=== PATIENT | male | born 1980 | race Hispanic/Latino ===

== ENCOUNTER 2020-04-11 15:00 | Emergency (ER) | payer OTHER ==
--- NOTE | 2020-04-11 17:21 | ER ---
Nurse's Notes [facility] Name: Roger Sampson Age: 39 yrs Sex: Male : 1980 Arrival Date: 04/11/2020 Time: 15:03 Bed 26 Private MD: Diagnosis: Hypertension Presentation: 04/11 15:36 Acuity: FISH 3 sg 15:48 Chief complaint: Patient states: At home for the last couple of days my blood pressure sg has been really high like 160's/100's, I havent had any other symptoms though, no pain either. (form tamper used via [email or web address]). Coronavirus screen: Client denies travel out of the [place] in the last 14 days. At this time, the client does not indicate any symptoms associated with coronavirus-19. Ebola Screen: Patient negative for fever greater than or equal to 101.5 degrees Fahrenheit, and additional compatible Ebola Virus Disease symptoms Patient denies exposure to infectious person. Patient denies travel to an Ebola-affected area in the 21 days before illness onset. No symptoms or risks identified at this time. Initial Sepsis Screen: Does the patient meet any 2 criteria? No. Patient's initial sepsis screen is negative. Does the patient have a suspected source of infection? No. Patient's initial sepsis screen is negative. Risk Assessment: Do you want to hurt yourself or someone else? Patient reports no desire to harm self or others. Onset of symptoms was April 11, 2020. Care prior to arrival: None. Transition of care: patient was not received from another setting of care. 15:48 Method Of Arrival: Ambulatory sg Historical: - Allergies: 15:51 No Known Allergies; sg - Home Meds: 15:51 None [Active]; sg - PMHx: 15:51 None; sg - PSHx: 15:51 R Clavicle; Abdominal Sx (Exploratory); sg - Immunization history:: Adult Immunizations up to date. - Social history:: Smoking status: Patient denies any tobacco usage or history of. - Family history:: not pertinent. - Hospitalizations: : No recent hospitalization is reported. Screenin:30 Abuse screen: Denies threats or abuse. Denies injuries from another. Nutritional iw screening: No deficits noted. Tuberculosis screening: No symptoms or risk factors identified. Fall Risk None identified. Assessment: 17:00 General: Appears in no apparent distress. comfortable, Behavior is calm, cooperative. iw Pain: Denies pain. Neuro: Level of Consciousness is awake, alert, obeys commands, Oriented to person, place, time, situation, Moves all extremities. Cardiovascular: Patient's skin is warm and dry. Respiratory: Respiratory effort is even, unlabored, Respiratory pattern is regular. GI: No signs and/or symptoms were reported involving the gastrointestinal system. Derm: Skin is intact, is healthy with good turgor. Musculoskeletal: Range of motion: intact in all extremities. Vital Signs: 15:48 BP 132 / 94; Pulse 81; Resp 18; Temp 98.9; Pulse Ox 100% on R/A; Weight 76.2 kg; Height sg 5 ft. 6 in. (167.64 cm); Pain 0/10; 15:48 Body Mass Index 27.12 (76.20 kg, 167.64 cm) sg ED Course: 15:03 Patient arrived in ED. ag5 15:36 Triage completed. sg 15:44 Arm band placed on. sg 16:53 Jacob Ruiz MD is Attending Physician. rn 17:00 Mirella Lilly RN is Primary Nurse. ca1 17:30 Patient has correct armband on for positive identification. iw 17:30 No provider procedures requiring assistance completed. Patient did not have IV access iw during this emergency room visit. Administered Medications: No medications were administered Outcome: 17:20 Discharge ordered by . rn 17:30 Discharged to home ambulatory. iw 17:30 Condition: good 17:30 Discharge instructions given to patient, Instructed on discharge instructions, follow up and referral plans. Demonstrated understanding of instructions, follow-up care, medications, Prescriptions given X 1. 17:30 Patient left the ED. iw Signatures: Tez Barba RN RN sg Mandy Sheehan RN RN iw Jacob Ruiz MD MD rn Acob, Cheryl, RN RN [facility] Tray Kamran ag5
--- NOTE | 2020-04-11 17:21 | EDPHYS ---
Physician Documentation [facility] Name: Roger Sampson Age: 39 yrs Sex: Male : 1980 Arrival Date: 04/11/2020 Time: 15:03 Bed 26 Private MD: ED Physician Jacob Ruiz HPI: 04/11 17:03 This 39 yrs old Male presents to ER via Ambulatory with complaints of High rn Blood Pressure. 17:03 The patient has elevated blood pressure and discovered this at home. Onset: The rn symptoms/episode began/occurred at an unknown time. 17:03 Modifying factors:. Associated signs and symptoms: The patient has no apparent rn associated signs or symptoms, Pertinent negatives: chest pain, headache, nausea, vomiting, weakness. Severity of symptoms: At its worst the blood pressure was moderate, in the emergency department the blood pressure is improved. The patient has not experienced similar symptoms in the past. Reports has been feeling "strange" lately, bought BP machine yesterday and reading BPs of 160s/100s, denies chest pain/sob/abd pain/focal neuro complaint. Reports father with BP problems. Feels better today. Reports works 2 jobs with very minimal rest and sleep. Is here from [place], and does not have a doctor. . Historical: - Allergies: 15:51 No Known Allergies; sg - Home Meds: 15:51 None [Active]; sg - PMHx: 15:51 None; sg - PSHx: 15:51 R Clavicle; Abdominal Sx (Exploratory); sg - Immunization history:: Adult Immunizations up to date. - Social history:: Smoking status: Patient denies any tobacco usage or history of. - Family history:: not pertinent. - Hospitalizations: : No recent hospitalization is reported. ROS: 17:03 Constitutional: Negative for fever, chills, and weight loss, Eyes: Negative for injury, rn pain, redness, and discharge, Neck: Negative for injury, pain, and swelling, Cardiovascular: Negative for chest pain, palpitations, and edema, Respiratory: Negative for shortness of breath, cough, wheezing, and pleuritic chest pain, Abdomen/GI: Negative for abdominal pain, nausea, vomiting, diarrhea, and constipation, Back: Negative for injury and pain, MS/Extremity: Negative for injury and deformity, Skin: Negative for injury, rash, and discoloration, Neuro: Negative for headache, weakness, numbness, tingling, and seizure. Exam: 17:03 Constitutional: This is a well developed, well nourished patient who is awake, alert, rn and in no acute distress. Head/Face: Normocephalic, atraumatic. Neck: Supple, full range of motion without nuchal rigidity. No Meningismus. Cardiovascular: Regular rate and rhythm. No pulse deficits. Respiratory: No increased work of breathing, no retractions or nasal flaring. Abdomen/GI: Soft, non-tender Skin: Warm, dry MS/ Extremity: Pulses equal, no cyanosis. Neuro: Awake and alert, GCS 15, oriented to person, place, time, and situation. Cranial nerves II-XII grossly intact. Motor strength 5/5 in all extremities. Sensory grossly intact. Cerebellar exam normal. Normal gait. Vital Signs: 15:48 BP 132 / 94; Pulse 81; Resp 18; Temp 98.9; Pulse Ox 100% on R/A; Weight 76.2 kg; Height sg 5 ft. 6 in. (167.64 cm); Pain 0/10; 15:48 Body Mass Index 27.12 (76.20 kg, 167.64 cm) sg MDM: 16:53 Patient medically screened. rn 17:17 Differential diagnosis: Malignant HTN, asymptomatic HTN, stress. Data reviewed: vital rn signs, nurses notes, and as a result, I will discharge patient. Counseling: I had a detailed discussion with the patient and/or guardian regarding: the historical points, exam findings, and any diagnostic results supporting the discharge/admit diagnosis, the need for outpatient follow up, to return to the emergency department if symptoms worsen or persist or if there are any questions or concerns that arise at home. Special discussion: I discussed with the patient/guardian in detail that at this point there is no indication for admission to the hospital. It is understood, however, that if the symptoms persist or worsen the patient needs to return immediately for re-evaluation. Based on the history and exam findings, there is no indication for further emergent testing or inpatient evaluation. I discussed with the patient/guardian the need to see the primary care provider for further evaluation of the symptoms. ED course: Recommend consistent BP management and diary, will start on low dose anti-hypertensive and urge pcp f/u.. Administered Medications: No medications were administered Disposition: 04/11/20 17:20 Discharged to Home. Impression: Hypertension. - Condition is Stable. - Discharge Instructions: Hypertension, Managing Your Hypertension. - Prescriptions for Hydrochlorothiazide 25 mg Oral Tablet - take 1 tablet by ORAL route once daily .; 60 tablet. - Medication Reconciliation Form, Thank You Letter, Antibiotic Education, Prescription Opioid Use form. - Follow up: Private Physician; When: As needed; Reason: Recheck today's complaints, Re-evaluation by your physician. - Problem is new. - Symptoms have improved. Signatures: Tez Barba RN RN sg Mandy Sheehan RN RN iw Jacob Ruiz MD MD data analysis intern: (The following items were deleted from the chart) 17:30 17:20 04/11/2020 17:20 Discharged to Home. Impression: Hypertension. Condition is iw Stable. Forms are Medication Reconciliation Form, Thank You Letter, Antibiotic Education, Prescription Opioid Use. Follow up: Private Physician; When: As needed; Reason: Recheck today's complaints, Re-evaluation by your physician. Problem is new. Symptoms have improved. rn
[2020-04-11 17:35] VITALS: BP 132/94; TEMP 98.9; O2SAT 100
== END 2020-04-11 17:30 | disposition home or self-care (01) ==
LOC: ER 15:00
DX: I10 Essential (primary) hypertension (principal)
CPT/HCPCS: 99282

== ENCOUNTER 2020-06-30 17:06 | Emergency (ER) | payer OTHER ==
[2020-06-30] MEDS ORDERED: BUPIVACAINE 0.5% PF 10 ML VIAL ONE (18:35)
[2020-06-30] MEDS ORDERED: LIDOCAINE 1% MPF 5 ML VIAL ONE (18:35)
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
[2020-06-30] MEDS ORDERED: CEPHALEXIN 250 MG CAP ONE (19:47)
[2020-06-30] MEDS ORDERED: SMZ./TMP. 800/160 MG TABLET ONE (19:47)
[2020-06-30 19:58] VITALS: TEMP 98.4
[2020-06-30 19:59] VITALS: BP 121/76; O2SAT 99
== END 2020-07-01 02:09 | disposition home or self-care (01) ==
LOC: ER 17:06
PROC: 0H9GXZZ Drainage of Left Hand Skin, External Approach (ICD-10-PCS; principal; 2020-06-30)
DX: L03.012 Cellulitis of left finger (principal); F17.210 Nicotine dependence, cigarettes, uncomplicated
CPT/HCPCS: 99283

== ENCOUNTER 2020-07-28 13:27 | Emergency (ER) | payer OTHER ==
[2020-07-28 15:46] LABS: Urine Blood Trace-intact (Negative); Urine Glucose Negative (Negative); Urine Protein 1+ (Negative); Urine Specific Gravity 1.025 (1.005-1.030)
[2020-07-28] MEDS ORDERED: HYDROCODONE/APAP 7.5/325 MG TAB ONE (16:41)
--- NOTE | 2020-07-28 17:04 | RAD REPORT ---
EXAM DESCRIPTION: RAD - Pelvis - 07/28/2020 4:54 pm CLINICAL HISTORY: PAIN COMPARISON: No comparisons FINDINGS: No fracture, dislocation or radiographic evidence of AVN. IMPRESSION: Negative study.
--- NOTE | 2020-07-28 17:04 | RAD REPORT ---
EXAM DESCRIPTION: RAD - Lumbar Spine 3 Views - 07/28/2020 4:57 pm CLINICAL HISTORY: PAIN Radiculopathy COMPARISON: No comparisons FINDINGS: Vertebral body heights appear maintained. No compression fracture noted. Mild disc thinnin g is present lower lumbar levels. No spondylolysis or spondylolisthesis. IMPRESSION: No acute lumbar abnormality seen. Mild lower lumbar spondylosis.
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
[2020-07-28 19:04] VITALS: TEMP 97.2
[2020-07-28 19:05] VITALS: BP 111/69; O2SAT 100
== END 2020-07-28 18:09 | disposition home or self-care (01) ==
LOC: ER 13:27
DX: M43.06 Spondylolysis, lumbar region (principal); M79.605 Pain in left leg; F17.210 Nicotine dependence, cigarettes, uncomplicated
CPT/HCPCS: 72100; 72170; 81003; 99284

== ENCOUNTER 2020-08-15 10:24 | Emergency (ER) | payer OTHER ==
[2020-08-15] MEDS ORDERED: METHYLPREDNISOLONE 125 MG INJ ONE (11:41)
[2020-08-15] MEDS ORDERED: NA CHLORIDE 0.9% 1,000 ML ONE (11:42)
[2020-08-15] MEDS ORDERED: MORPHINE 4 MG/ML SYR ONE ×2 (11:42→15:50)
[2020-08-15] MEDS ORDERED: ONDANSETRON 4 MG/2 ML VIAL ONE (11:42)
[2020-08-15] MEDS ORDERED: KETOROLAC 30 MG/ML INJ ONE (11:42)
--- NOTE | 2020-08-15 12:20 | RAD REPORT ---
EXAM DESCRIPTION: CT - Pelvis W/Cont - 08/15/2020 11:58 am CLINICAL HISTORY: Pelvic pain COMPARISON: None. TECHNIQUE: Computed axial tomography of the pelvis was obtained. 50 cc Isovue-[address] intra ven[address] CT scans are performed using dose optimization technique as appropriate and may include automated exposure control or mA/KV adjustment according to patient size. FINDINGS: Fluid is present within nondilated small bowel. No evidence of diverticulitis. The visualized colonic wall thickness is normal. Visualized appendix is normal. No fracture or dislocation. No ascites is seen. No gross abnormality of the bladder. Small left paracentral disc herniation suspected L4-5 Large left posterolateral structure L5-S1 IMPRESSION: Small left paracentral disc herniation suspected L4-5 Large left posterolateral structure L5-S1 probably a disc herniation. MRI is recommended
[2020-08-15] MEDS ORDERED: LORAZEPAM 1 MG TABLET ONE (13:18)
--- NOTE | 2020-08-15 15:35 | RAD REPORT ---
EXAM DESCRIPTION: MRI - Lumbar Spine Wo Con- 08/15/2020 3:16 pm CLINICAL HISTORY: PAIN COMPARISON: Pelvis W/Cont dated 08/15/2020 FINDINGS: Vertebral body heights are within normal limits. No aggressive marrow pattern is observed. No fracture is suspected. The conus medullaris terminates at a normal level. No thickening of the cauda equina or clumping of n erve roots seen. L1-2 level: No significant findings. L2-3 level: Mild facet hypertrophy. L3-4 level: Mild facet and ligamentum flavum hypertrophy. L4-5 level: Broad-based posterior disc bulge is seen left paracentral disc protrusion present extendi ng inferiorly. Small posterior annular fissure is also present. Mild facet and ligamentum flavum hype rtrophy. Left lateral recess is narrowed mild narrowing of the anterior inferior aspect of both exit foramen. L5-S1 level: There is a very large disc extrusion present. This is seen is significantly narrowing th e central canal or measures 8 mm in anterior-posterior dimension and extends into the left lateral re cess measuring 11 mm in AP dimension along the left paracentral location. Mild narrowing both exit fo ramina seen. IMPRESSION: Very large L5-S1 disc extrusion as detailed. This results in significant narrowing of th e left lateral recess at this level.
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
[2020-08-15 18:38] VITALS: TEMP 97.8
[2020-08-15 18:43] VITALS: BP 121/91; O2SAT 100
[2020-08-15] MEDS ORDERED: PROMETHAZINE INJ 25 MG/ML AMP ONE (18:44)
== END 2020-08-15 17:02 | disposition home or self-care (01) ==
LOC: ER 10:24
DX: M51.26 Other intervertebral disc displacement, lumbar region (principal); M51.27 Other intervertebral disc displacement, lumbosacral region; F17.210 Nicotine dependence, cigarettes, uncomplicated
CPT/HCPCS: 96361; 82565; 72193; 72148; 96375; 96374; 99284; Q9967; J2550; J7030; J2930; J2405

== ENCOUNTER 2020-08-18 06:43 | Emergency (ER) | payer OTHER ==
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
[2020-08-18 08:02] LABS: Absolute Lymphocytes (CBC) 1.4 K/uL (0.7-4.9); Basophils % 0.2 % (0-1.3); Hematocrit 45.4 % (39.6-49.0); Lymphocytes % 15.3 % (15.3-44.8); MPV 8.7 fL (7.6-11.3)
[2020-08-18] MEDS ORDERED: ONDANSETRON 4 MG/2 ML VIAL ONE ×2 (08:09→10:47)
[2020-08-18] MEDS ORDERED: KETOROLAC 30 MG/ML INJ ONE (08:09)
[2020-08-18] MEDS ORDERED: DIAZEPAM 5 MG TABLET ONE (08:09)
[2020-08-18] MEDS ORDERED: MORPHINE 4 MG/ML SYR ONE ×2 (08:09→10:47)
[2020-08-18] MEDS ORDERED: NA CHLORIDE 0.9% 1,000 ML ONE (08:09)
[2020-08-18] MEDS ORDERED: dexAMETHasone 10 MG/ML VIAL ONE (08:09)
[2020-08-18 08:18] LABS: Albumin 4.7 g/dL (3.4-5.0); Bilirubin Total 0.7 mg/dL (0.2-1.0); Potassium 3.7 mmol/L (3.5-5.1); Protein, Total 8.4 g/dL (6.4-8.2)
[2020-08-18 10:46] VITALS: BP 134/88; TEMP 98.1; O2SAT 99
[2020-08-18] MEDS ORDERED: LORazepam 2 MG/ML VIAL ONE (10:46)
== END 2020-08-18 10:33 ==
LOC: ER 06:43
DX: M51.27 Other intervertebral disc displacement, lumbosacral region (principal); Z20.822 Contact with and (suspected) exposure to COVID-19
CPT/HCPCS: 85025; 36415; 80053; U0003; J1100; J7030; J2405 ×2; 99284

== ENCOUNTER 2021-04-09 08:35 | Emergency (ER) | payer OTHER ==
--- OUTSIDE RECORDS SUMMARY | 2021-04-09 08:39 | XMS REPORT | Continuity of Care Document ---
:1980 Author Organization [facility] t Address [address] [place] [address] Care Team Providers Name Role Phone VALERIE Attending Clinician Unavailable JESUS PADILLA Attending Clinician Unavailable JESUS PADILLA Admitting Clinician Unavailable Payers Payer Name Policy Type Policy Number Effective Date Expiration Date fabienne [facility] [id number] 2020 2024 [employer] 00:00:00 00:00:00 Problems This patient has no known problems. Allergies, Adverse Reactions, Alerts This patient has no known allergies or adverse reactions. Social History Social Habit Start Date Stop Date Quantity Comments Source Sex Assigned At [address] [facility] 00:00:00 00:00:00 Smoking Status Start Date Stop Date Source Tobacco smoking consumption unknown [facility] Medications This patient has no known medications. Procedures This patient has no known procedures. Encounters Start End Encounter Admission Attending Care Care Encounter Source Date/Time Date/Time Type Type Clinicians Facility Department ID 2020-09-19 Outpatient VALERIE [facility] [id number] [place] 01:05:21 [facility] 2020-10-24 2020-10-24 EXT [facility] Valerie EXT [facility] [id number] [place] 00:00:00 00:00:00 [facility] [id number] [facility] [id number] 2020-08-18 2020-08-20 Inpatient E VALERIE [facility] [address] [facility] 10:12:00 10:21:00 NELIDA Results This patient has no known results.
[2021-04-09 10:35] LABS: SARS-COV-2 RT PCR NEGATIVE (NEGATIVE)
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
[2021-04-09 11:04] VITALS: BP 134/93; TEMP 97.5; O2SAT 99
== END 2021-04-09 10:56 | disposition home or self-care (01) ==
LOC: ER 08:35
DX: J06.9 Acute upper respiratory infection, unspecified (principal); F17.210 Nicotine dependence, cigarettes, uncomplicated; Z20.822 Contact with and (suspected) exposure to COVID-19
CPT/HCPCS: 87070; 87081; 0240U; 99282

== ENCOUNTER 2021-07-07 13:39 | Emergency (ER) | payer OTHER ==
--- OUTSIDE RECORDS SUMMARY | 2021-07-07 13:42 | XMS REPORT | Continuity of Care Document ---
:1980 Author Organization [facility] t Address [address] [place] [address] Care Team Providers Name Role Phone VALERIE Attending Clinician Unavailable JESUS PADILLA Attending Clinician Unavailable JESUS PADILLA Admitting Clinician Unavailable Payers Payer Name Policy Type Policy Number Effective Date Expiration Date fabienne [facility] [id number] 2020 2024 HEALTH PLAN 00:00:00 00:00:00 Problems This patient has no known problems. Allergies, Adverse Reactions, Alerts This patient has no known allergies or adverse reactions. Social History Social Habit Start Date Stop Date Quantity Comments Source Sex Assigned At [birth year] [facility] 00:00:00 00:00:00 Smoking Status Start Date Stop Date Source Tobacco smoking consumption unknown [facility] Smokes tobacco daily [facility] Medications Ordered Filled Start Stop Current Ordering Indication Dosage Frequency Signature Comments Components Source Medication Medication Date Date Medication? Clinician (SIG) Name Name ibuprofen Yes [place] 800 MG 2-14 Health tablet 17:44: 49 gabapentin Yes [id number] 600mg [id number] Take 1 [facility] (Neurontin) 2-14 [id number] tablet Health 600 MG 00:00: 3D (600 mg tablet 00 total) by mouth 3 (three) times a day. traMADol 2020-03 Yes [facility] (Ultram) 50 2-01 Health MG tablet 00:00: 00 methocarbam 2020-03 Yes take 1 tab [facility] ol 1-30 4 times a Health (Robaxin) 00:00: day as 500 MG 00 needed tablet Procedures This patient has no known procedures. Encounters Start End Encounter Admission Attending Care Care Encounter Source Date/Time Date/Time Type Type Clinicians Facility Department ID 2021-05-[address] [facility] [id number] [place] 15:42:27 [id number] [facility] 2020-09-19 Outpatient PADILLA, [facility] [id number] [place] 01:05:21 NELIDA [facility] 2021-05-28 2021-05-28 Telephone VERITO Padilla 6400 [id number] [place] 00:00:00 00:00:[address] [id number] Health [id number] 2020-10-24 2020-10-24 EXT [facility] OP Valerie, EXT [facility] [id number] [place] 00:00:00 00:00:00 Nelida LOCATION [id number] H [place] [id number] 2020-08-18 2020-08-20 Inpatient E VALERIE[facility] [address] [facility] 10:12:00 10:21:00 NELIDA Results This patient has no known results.
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
[2021-07-07] MEDS ORDERED: SMZ./TMP. 800/160 MG TABLET ONE (14:23)
[2021-07-07] MEDS ORDERED: CEPHALEXIN 250 MG CAP ONE (14:23)
[2021-07-07] MEDS ORDERED: HYDROCODONE/APAP 10/325 TAB ONE (14:24)
[2021-07-07 16:07] VITALS: BP 129/84; TEMP 98.7; O2SAT 99
== END 2021-07-07 14:29 | disposition home or self-care (01) ==
LOC: ER 13:39
DX: T22.212A Burn of second degree of left forearm, initial encounter (principal); L03.116 Cellulitis of left lower limb; T31.0 Burns involving less than 10% of body surface; X15.8XXA Contact with other hot household appliances, initial encounter; I10 Essential (primary) hypertension; F17.210 Nicotine dependence, cigarettes, uncomplicated
CPT/HCPCS: 99283

== ENCOUNTER 2023-08-22 13:50 | Emergency (ER) | payer OTHER ==
--- OUTSIDE RECORDS SUMMARY | 2023-08-22 13:53 | XMS REPORT | Continuity of Care Document ---
Author Name Unknown Address [address] [facility] [place]. [address] [place] [address] [facility] thconnect Address [address] [facility] [place] [place] [address] Care Team Providers Care Experimental Assembler Name Role Phone Piter [facility] Primary Care Physician NELIDA PADILLA Attending Clinician Unavailable CHERYL BAKER Attending Clinician Unava illacho Radiology Attending Clinician Unavailable RADIOLOGY Attending Clinician Unavailable Doctor Unassigned, [place] Attending Clinician U navailNELIDA Persaud Attending Clinician Unavaila NELIDA Lopez Admitting Clinician Unavaila moe Payers Payer Name Policy Type Policy Number Effective Date Expirati on Date Source [facility] [id number] 2020 00:00:00 2024 00:00:00 Allergies, Adverse Reactions, Alerts Allergy Name Allergy Type Status Severity Reaction(s) Onset Date Inactive Date Treating Clinician Comments Source NO KNOWN ALLERGIE S Drug Class Active [facility] Social History Social Habit Start Date Stop Date Quantity Comments Source History of tobacco use Cigarette Smoker [facility] Sexual orientation [facility] Tobacco use and exposure 2023-04-14 00:00:00 2023-04-14 00:00:00 Smokeless tobacco non-user [facility] Alcoholic beverage intake 2023-04-14 00:00:00 2023-04-14 00:00:00 Lifetime non-drinker (finding) [facility] Tobacco Comment 2023-04-14 00:00:00 2023-04-14 00:00:00 Smoking History Packs/day: 0.5 PPD. Recorded: [address] [facility] History of Social function 2021-04-01 00:00:00 2021-04-01 00:00:[address] [facility] Sex Ass[birth year] At 1980 00:00:00 1980 00:00:00 [facility] Smoking Status Start Date Stop Date Source Smokes tobacco daily [place] Tobacco smoking consumption unknown [facility] Occasional tobacco smoker 2023-04-14 00:00:[address] [facility] Medications Ordered Medication Name Filled Medication Name Start Date Stop Date Current Medication? Ordering Clinician Indication Dosage Frequency Signature (SIG) Comments Components Source gabapentin 600 mg tablet 07-11 00:00: 00 Yes mg Raj Matamoros LORazepam (Ativan) 1 MG tablet 04-14 00:00: 00 Yes [id number] Take 1 mg 1 hour prior to MRI may repeat x [address] [facility] gabapentin 600 mg tablet 04-09 00:00: 00 Yes mg Raj Matamoros TAKE 1 TABLET TWICE A DAY NEEDED 03-15 00:00: 00 Yes 500 Raj Partha Matamoros GABAPENTIN 600 MG 03-15 00:00: 00 Yes Raj Matamoros GABAPENTIN 600 MG 03-09 00:00: 00 Yes 600 Raj Matamoros TAKE 2 TABS DAILY THE FIRST 5 DAYS, THEN 1 TAB DAILY THE LAST 5 DAYS 2022-03 0- 00:00: 00 07-11 00:00 :00 No 4 Raj Partha Matamoros TAKE 1 TABLET BY MOUTH THREE TIMES DAILY - 00:00: 00 Yes Raj Matamoros LORAZEPAM 1MG 04-08 00:00: 00 Yes Raj Matamoros TAKE 1 TABLET BY MOUTH EVERY 4 TO 6 HOURS NEEDED FOR PAIN 2021-03 00:00: 00 Yes Raj Matamoros TAKE 1 TABLET 3 TIMES DAILY. 2021-0318 00:00: 00 07-11 00:00 :00 No 600 Raj Matamoros Dose Unknown 2021-03 2-14 00:00: 00 Yes Raj Matamoros Dose Unknown 2021-03 2-14 00:00: 00 Yes Raj Matamoros TAKE 1 TABLET BY MOUTH EVERY 8 HOURS NEEDED 2021-03 2-14 00:00: 00 Yes Raj Matamoros Dose Unknown 2021-03 2-14 00:00: 00 07-11 00:00 :00 No Raj Matamoros Dose Unknown 2021-03 2-14 00:00: 00 07-11 00:00 :00 No Raj Matamoros TAKE 1 TABLET 3 TIMES DAILY. 2021-03 2-10 00:00: 00 07-11 00:00 :00 No 600 Raj Matamoros TAKE 1 TABLET BY MOUTH TWICE DAILY NEEDED 2021-03 1-26 00:00: 00 Yes Raj Matamoros TAKE 1 TABLET BY MOUTH THREE TIMES DAILY 2021-03 0-03 00:00: 00 Yes Raj Matamoros TAKE 1 TABLET 3 TIMES DAILY. 8-10 00:00: 00 Yes Raj Matamoros Dose Unknown 8-09 00:00: 00 Yes Raj Matamoros Dose Unknown 6-23 00:00: 00 Yes Raj Matamoros Dose Unknown 6-22 00:00: 00 Yes Raj Matamoros Dose Unknown 6-22 00:00: 00 Yes Raj Matamoros TAKE 1 TABLET 3 TIMES DAILY. 6-18 00:00: 00 Yes Raj Matamoros Dose Unknown 6-18 00:00: 00 Yes Raj Matamoros ibuprofen 800 MG tablet 2-14 17:44: [address] [facility] gabapentin (Neurontin) 600 MG tablet 14 00:00: 00 Yes [id number] 600mg [id number] 3D Take 1 tablet (600 mg total) by mouth 3 (three) times a day. [facility] traMADol (Ultram) 50 MG tablet 2020-03 2- 00:00: [address] [facility] methocarbam ol (Robaxin) 500 MG tablet 2020-0330 00:00: 00 Yes take 1 tab 4 times a day as needed [facility] Immunizations Ordered Immunization Name Filled Immunization Name Date Status Comments Source Hep A-Hep B Hep A-Hep B 2021-12-08 00:00:00 Completed Raj Matamoros Influenza, injectable, MDCK, quadrivalent, preservative Influenza, injectable, MDCK, quadrivalent, preservative 2021-12-08 00:00:00 Completed Raj Matamoros (Old, dont use) Moderna Covid-19 Vaccine (Aged 12 years and older) (Tin Container Straightener) (Old, dont use) Moderna Covid-19 Vaccine (Aged 12 years and older) (Tin Container Straightener) 2021-11-13 00:00:00 Completed Raj Matamoros Moderna COVID-19 Vaccine Moderna COVID-19 Vaccine 2021-10-13 00:00:00 Completed Raj Matamoros Vital Signs Vital Name Observation Time Observation Value Comments S ource Systolic blood pressure 2023-04-14 18:36:00 144 mm[Hg] [facility] Diastolic blood pressure 2023-04-14 18:36:00 89 mm[Hg] [facility] Heart rate 2023-04-14 18:36:00 52 /min [facility] Body temperature 2023-04-14 18:36:00 37.06 Patsy [facility] Body weight 2023-04-14 18:36:00 71.215 kg [facility] BMI 2023-04-14 18:36:00 24.59 kg/m2 [facility] BP Systolic 2023-07-12 13:18:00 108 mm[Hg] Step hen Partha Matamoros BP Diastolic 2023-07-12 13:18:00 73 mm[Hg] [place] phen Partha Matamoros Weight Measured 2023-07-12 13:18:00 156.00 pounds Raj Matamoros Height Measured 2023-07-12 13:18:00 67.00 inches Raj Matamoros Body Temperature 2023-07-12 13:18:00 98.50 degrees Raj Matamoros Heart Rate 2023-07-12 13:18:00 95.00 /min Shima en F Saturnino Respiratory Rate 2023-07-12 13:18:00 18.00 /min Raj Matamoros BP Systolic 2023-03-15 11:04:00 130 mm[Hg] Step hen F Saturnino BP Diastolic 2023-03-15 11:04:00 87 mm[Hg] [place] phen F Saturnino Weight Measured 2023-03-15 11:04:00 160.60 pounds Raj F Saturnino Height Measured 2023-03-15 11:04:00 67.00 inches Raj F Saturnino Body Temperature 2023-03-15 11:04:00 98.30 degrees Raj F Saturnino Heart Rate 2023-03-15 11:04:00 85.00 /min Shima en F Saturnino Respiratory Rate 2023-03-15 11:04:00 17.00 /min Raj F Saturnino BP Systolic 2022-12-14 10:38:00 121 mm[Hg] Step hen F Saturnino BP Diastolic 2022-12-14 10:38:00 77 mm[Hg] [place] phen F Saturnino Weight Measured 2022-12-14 10:38:00 158.20 pounds Raj F Saturnino Height Measured 2022-12-14 10:38:00 67.00 inches Raj F Saturnino Body Temperature 2022-12-14 10:38:00 98.10 degrees Raj F Saturnino Heart Rate 2022-12-14 10:38:00 82.00 /min Shima en F Saturnino Respiratory Rate 2022-12-14 10:38:00 17.00 /min Raj F Saturnino Respiratory Rate 2022-07-01 10:46:00 19.00 /min Raj F Saturnino BP Systolic 2022-07-01 10:46:00 116 mm[Hg] Step hen F Saturnino BP Diastolic 2022-07-01 10:46:00 76 mm[Hg] [place] phen F Saturnino Weight Measured 2022-07-01 10:46:00 154.40 pounds Raj F Saturnino Height Measured 2022-07-01 10:46:00 67.00 inches Raj F Saturnino Body Temperature 2022-07-01 10:46:00 98.60 degrees Raj F Saturnino Heart Rate 2022-07-01 10:46:00 75.00 /min Shima en F Saturnino BP Systolic 2022-01-30 12:22:00 130 mm[Hg] Step hen F Saturnino BP Diastolic 2022-01-30 12:22:00 74 mm[Hg] [place] phen F Saturnino Weight Measured 2022-01-30 12:22:00 156.20 pounds Raj F Saturnino Height Measured 2022-01-30 12:22:00 67.00 inches Raj F Saturnino Body Temperature 2022-01-30 12:22:00 98.20 degrees Raj F Saturnino Heart Rate 2022-01-30 12:22:00 84.00 /min Shima en F Saturnino Respiratory Rate 2022-01-30 12:22:00 18.00 /min Raj F Saturnino BP Systolic 2021-11-11 16:15:00 115 mm[Hg] Step hen F Saturnino BP Diastolic 2021-11-11 16:15:00 79 mm[Hg] [place] phen F Saturnino Weight Measured 2021-11-11 16:15:00 148.20 pounds Raj F Saturnino Height Measured 2021-11-11 16:15:00 67.00 inches Raj F Saturnino Body Temperature 2021-11-11 16:15:00 98.00 degrees Raj F Saturnino Heart Rate 2021-11-11 16:15:00 79.00 /min Shima en F Saturnino Respiratory Rate 2021-11-11 16:15:00 17.00 /min Raj F Saturnino BP Systolic 2021-10-13 13:23:00 121 mm[Hg] Step hen F Saturnino BP Diastolic 2021-10-13 13:23:00 78 mm[Hg] [place] phen F Saturnino Weight Measured 2021-10-13 13:23:00 149.40 pounds Raj F Saturnino Height Measured 2021-10-13 13:23:00 67.00 inches Raj F Saturnino Body Temperature 2021-10-13 13:23:00 98.20 degrees Raj F Saturnino Heart Rate 2021-10-13 13:23:00 94.00 /min Shima en F Saturnino Respiratory Rate 2021-10-13 13:23:00 18.00 /min Raj F Saturnino Procedures Procedure Date / Time Performed Performing Clinicia n Source CONSENT/REFUSAL FOR DIAGNOSIS AND TREATMENT 2023-04-05 16:47:27 Doctor Unassigned, [place] [facility] ASSIGNMENT OF BENEFITS 2023-04-05 16:47:12 Docto r Unassigned, [place] [facility] Encounters Start Date/Time End Date/Time Encounter Type Admission Type Attending [facility] Care Department Encounter ID Source 2022-03-15 14:04:54 Outpatient [facility] [id number] [facility] 2020-09-19 01:05:21 Outpatient NELIDA PADILLA [facility] [id number] [facility] 2023-07-12 13:16:14 2023-07-12 13:16:[address] [facility] [id number] Raj Matamoros 2023-07-12 00:00:00 2023-07-12 00:00:[address] [facility] [id number] Raj Matamoros 2023-04-14 11:20:00 2023-04-14 11:20:00 Office Visit CHERYL BAKER [facility] [address], [place] [id number] [facility] 2023-04-05 10:50:23 2023-04-05 23:59:00 Hospital Encounter Radiology [facility] [id number] [facility] 2023-04-05 00:00:00 2023-04-05 23:59:00 Outpatient R RADIOLOGY [facility] [id number] [facility] 2023-04-05 00:00:00 2023-04-05 00:00:00 Orders Only Doctor Unassigned, [place] [facility] [id number] [facility] 2023-03-17 11:20:00 2023-03-17 11:20:00 Outpatient CHERYL BAKER [facility] [id number] [facility] 2023-03-15 10:49:40 2023-03-15 10:49:[address] [facility] [id number] Raj Chavis Saturnino 2022-12-14 10:28:06 2022-12-14 10:28:[address] [facility] [id number] Raj Matamoros 2022-07-01 10:39:33 2022-07-01 10:39:33 Outpatient SFA [facility] [id number] Raj Matamoros 2022-06-24 08:41:13 2022-06-24 08:41:13 Outpatient SFA [facility] [id number] Raj Matamoros 2022-06-21 10:01:38 2022-06-21 10:01:38 Outpatient SFA [facility] [id number] Raj Matamoros 2022-01-30 12:01:58 2022-01-30 12:01:58 Outpatient SFA [facility] [id number] Raj Matamoros 2021-05-28 00:00:00 2021-05-28 00:00:00 [place] Nelida Padilla [facility] [address], [place] [id number] [facility] 2020-10-24 00:00:00 2020-10-24 00:00:00 [facility] Nelida Padilla [facility] LOCATION [id number] [facility] 2020-10-24 00:00:00 2020-10-24 00:00:00 [facility] Nelida Padilla [facility] LOC[facility] [id number] [facility] 2020-08-18 10:12:00 2020-08-20 10:21:00 Inpatient E NELIDA PADILLA [facility] [address] [facility] Results Test Description Test Time Test Comments Results Result Co mments Source LIPID [id number] 05:00:19* Test Item Value Reference Range Interpretation Comme nts CHOLESTEROL (test code = 2210) 169 MG/DL <200 TRIGLYCERIDES (test code = 2232) 121 MG/DL <150 HDL CHOLESTEROL (test code = 2220) 43 MG/DL >39 CALC LDL CHOL (test code = 2237) 104 MG/DL <100 H NOTE: CALCULATED LDL IS BASED ON FAHAD-GAUTHIER METHOD WHICHINCLUDES ADJUSTABLE TRIGLYCERIDE:VLDL CHOLESTEROL RATIO.THIS FACTOR VARIES BY MEASURED TRIGLYCERIDE AND NON-HDLCHOLESTEROL CONCENTRATIONS WITH INCREASED CALCULATED LDL SEENIN HIGHER TRIGLYCERIDE OR LOWER NON-HDL SPECIMENS. FOR MOREINFORMATION, SEE CLIENT ANNOUNCEMENT AT [email or web address] RISK RATIO LDL/HDL (test code = 2238) 2.42 RATIO <3.55 LIPID [id number] 00:00:00* Test Item Value Reference Range Interpretation Comme nts CHOLESTEROL (test code = 2210) 169 MG/DL TRIGLYCERIDES (test code = 2232) 121 MG/DL HDL CHOLESTEROL (test code = 2220) 43 MG/DL CALC LDL CHOL (test code = 2237) 104 MG/DL RISK RATIO LDL/HDL (test cod e = 2238) 2.42 RATIO Raj MatamorosCOMPREHENSIVE METABOLIC [id number] 00:00:00* Test Item Value Reference Range Interpretation Comme nts GLUCOSE (test code = 2217) 85 MG/DL BUN (test code = 2208) 23 MG/DL CREATININE (test code = 2214) 1.01 MG/DL eGFR (2020 CKD-EPI) (test co de = 03754) 97 ML/MIN/1.73 CALC BUN/CREAT (test code = 2235) 23 RATIO SODIUM (test code = 2231) 139 MEQ/L POTASSIUM (test code = 2228) 4.9 MEQ/L CHLORIDE (test code = 2215) 101 MEQ/L CARBON DIOXIDE (test code = 2206) 26 MEQ/L CALCIUM (test code = 2209) 9.7 MG/DL PROTEIN, TOTAL (test code = 2229) 7.6 G/DL ALBUMIN (test code = 2201) 5.0 G/DL CALC GLOBULIN (test code = 2240) 2.6 G/DL CALC A/G RATIO (test code = 2234) 1.9 RATIO BILIRUBIN, TOTAL (test code = 2207) 0.4 MG/DL ALKALINE PHOSPHATASE (test code = 2204) 63 U/L AST (test code = 2218) 24 U/L ALT (test code = 2219) 24 U/L Raj Matamoros Notes Date/Time Note Provider Source 2023-07-12 00:00:00 [id number] T00:00:00+ + +| Plan Activity | Plan Date |+ =========+ +| COVID testing | 2020-11-27 || Vit C/MVI Daily | || Social distancing | || 1.5-2l Water daily | |+ ---------+ +| Gabapentin | 2021-08-04 || MRI lumbar spine pending. | || Educated to use warm compress for back and rest. | |+ ---------+ +| See above | 2021-08-04 |+ ---------+ +| Educated on healthy portions and healthy lifestyle to maintain a healthy weight | 2021-10-13 |+ ---------+ +| CMP and Lipids today | 2021-10-13 || F/u 2 weeks pending results | |+ ---------+ +| Moderna vaccine today- 1st dose | 2021-10-13 || F/u 1 month | |+ ---------+ +| Educated on health risks associated with smoking. | 2021-10-13 || Encouraged smoking cessation | |+ ---------+ +| mupirocin ointment applied to region | 2021-11-11 || sulfamethazole-TMP ordered for 7 days | |+ ---------+ +| MRI pending | 2021-11-30 || refill gabapentin | |+ ---------+ +| normal weight and height | 2022-01-30 |+ ---------+ +| discussed tobacoo cessation | 2023-07-12 |+ ---------+ +| denies any GI symptoms | 2023-07-12 || Referral placed for a second opinion | |+ ---------+ +[id number] of TreatmentLNCARE PLANTXTSFA|[id number] for patient [id number] Section NarrativeNARRATIVEFormatted C-CDA narrative textSFAStnakul Mace [facility]2024-05-07T00:00:00 Raj Maci [facility]"
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
[2023-08-22] MEDS ORDERED: ACETAMINOPHEN 500 MG TAB ONE (14:32)
[2023-08-22] MEDS ORDERED: methocarbamoL 500 MG TAB ONE (14:32)
[2023-08-22] MEDS ORDERED: KETOROLAC 30 MG/ML INJ ONE (14:33)
[2023-08-22 15:03] VITALS: BP 117/73; TEMP 98.6; O2SAT 99
== END 2023-08-22 14:45 | disposition home or self-care (01) ==
LOC: ER 13:50
DX: G56.01 Carpal tunnel syndrome, right upper limb (principal)
CPT/HCPCS: 96372; 99284

== ENCOUNTER 2024-12-05 06:47 | Day surgery (SDC) | payer OTHER ==
--- NOTE | 2024-11-29 16:15 | RAD REPORT ---
EXAMINATION: TWO VIEW CHEST XR CLINICAL INDICATION: pre op for day surgery TECHNIQUE: 2 views of the chest was performed. COMPARISON: No prior exam. FINDINGS: Mildly prominent interstitial lung markings. This is probably chronic. Lungs are grossly clear acute infiltrate. The heart is upper limit of normal in size. No displaced fractures evident. Right clavicular hardware.
[2024-11-29 16:27] LABS: Absolute Lymphocytes (CBC) 1.3 K/uL (0.7-4.9); Hematocrit 45.0 % (39.6-49.0); Hemoglobin 15.2 g/dL (13.6-17.9); MCH 32.8 pg (27.0-35.0); MCHC 33.9 g/dL (32.0-36.0); MCV 97.0 fL (80-100); MPV 8.6 fL (7.6-11.3); Nucleated RBC Absolute Count 0.0 (0-0); Nucleated Red Blood Cells % 0.0 % (0-0); RBC Red Blood Cell Count 4.64 M/uL (4.33-5.43); White Blood Count 5.90 thou/uL (4.3-10.9)
[2024-11-29 16:41] LABS: Anion Gap 6.1 mEq/L (5.0-15.0); BUN Blood Urea Nitrogen 18.0 mg/dL (7-18); Glucose Level 95.0 mg/dL (74-106); Potassium 4.1 mEq/L (3.5-5.1)
[2024-12-05] MEDS: Ringers Lactate 1,000 ML IV ONE (07:20)
[2024-12-05] MEDS ORDERED: KETOROLAC 30 MG/ML INJ ONE (07:20)
[2024-12-05] MEDS ORDERED: ONDANSETRON 4 MG/2 ML VIAL ONE (07:20)
[2024-12-05] MEDS ORDERED: LIDOCAINE 2% MPF 5 ML VIAL ONE (07:20)
[2024-12-05] MEDS ORDERED: MIDAZOLAM HCL 2 MG/2 ML INJ ONE (07:21)
[2024-12-05] MEDS ORDERED: FENTANYL CITR 100 MCG/2 ML ONE (07:21)
[2024-12-05] MEDS: CEFAZOLIN SODIUM 1 GM/VIAL ONE (07:43)
[2024-12-05] MEDS ORDERED: EPHEDRINE SULF 50 MG/ML VIAL ONE (08:06)
--- NOTE | 2024-12-05 08:26 | P.BOP ---
Preoperative diagnosis: Left submandibular subq mass Postoperative diagnosis: Left submandibular subq mass x 2 Primary procedure: 1. Left submandibular amterior subq mass 2 x 2.5cm Secondary procedure: 2. Left submandibular podsterior subq mass 2 x 2cm Estimated blood loss: <10cc Specimen: mass x 2 Findings: mass x 2 Anesthesia: General Complications: None Transferred to: Recovery Room Condition: Good
[2024-12-05] MEDS ORDERED: Ringers Lactate 1,000 ML IV ONE (08:48)
[2024-12-05] MEDS: CODEINE 30MG/APAP 300MG TAB ONE (09:50)
[2024-12-05 10:19] VITALS: BP 121/82; TEMP 97; O2SAT 97
== END 2024-12-05 10:10 | disposition home or self-care (01) ==
LOC: OR 06:47
PROVIDERS: ATTEND Surgery
PROC: 0JB10ZZ Excision of Face Subcutaneous Tissue and Fascia, Open Approach (ICD-10-PCS; principal; 2024-12-05 07:30)
DX: L72.0 Epidermal cyst (principal)
CPT/HCPCS: 93005; 85025; 80048; 36415; 88304; 71046; 11442 ×2; J2704; J2003; J2250; J3010; J1100; J2405; J7120 ×2; J0690; 88305